=== PATIENT | male | born 1955 ===

== ENCOUNTER 2017-01-04 15:04 | Emergency (ER) | payer BC ==
--- NOTE | 2017-01-04 18:57 | RAD ---
HISTORY: Pleuritic pain with swallowing COMPARISONS: Chest x-ray dated December 10, 2008 VIEWS: 2, frontal and lateral views of the neck FINDINGS: The prevertebral soft tissues are normal. There is a continuous air column from the pharynx the trachea. Mild degenerative changes are noted of the cervical spine. There is calcification of the carotid bifurcations bilaterally. There is stable left apical pleural thickening IMPRESSION: CAROTID ATHEROSCLEROSIS. OTHERWISE UNREMARKABLE PLAIN FILM OF THE SOFT TISSUES OF THE NECK
--- NOTE | 2017-01-04 19:16 | UC ---
Throat Pain/Nasal Shane HPI - HPI Summary HPI Summary: WORSENING SORE THROAT THROUGHOUT THE DAY. HEADACHE COUGH, EXPOSURE TO STREP. - History of Current Complaint Chief Complaint: UCGeneralIllness Stated Complaint: SORE THROAT Time Seen by Provider: 01/04/17 17:50 Hx Obtained From: Patient Onset/Duration: Gradual Onset, Lasting Days, Still Present Severity: Moderate Cough: Nonproductive Associated Signs & Symptoms: Positive: Dysphagia, Hoarseness, Sinus Discomfort, Nasal Discharge - Epiglottits Risk Factors Epiglottis Risk Factors: Negative - Allergies/Home Medications Allergies/Adverse Reactions: Allergies Allergy/AdvReac Type Severity Reaction Status Date / Time No Known Allergies Allergy Verified 01/04/17 17:15 Home Medications: Home Medications Atorvastatin* [Lipitor 20 MG*] 20 mg PO DAILY 01/04/17 [History Confirmed ] Ibuprofen [Ibuprofen 200 MG] 200 mg PO Q6HR PRN 01/04/17 [History Confirmed ] Olmesartan Medoxomil [Benicar] 20 mg PO DAILY 01/04/17 [History Confirmed ] PMH/Surg Hx/FS Hx/Imm Hx Previously Healthy: Yes Cardiovascular History Of: Reports: Hypertension - Surgical History Surgical History: None - Family History Known Family History: Negative: Respiratory Disease - Social History Occupation: Employed Full-time Lives: With Family Alcohol Use: Rare Substance Use Type: None Smoking Status (MU): Never Smoked Tobacco - Immunization History Most Recent Influenza Vaccination: NOT UTD Review of Systems Constitutional: Negative, Fever Skin: Negative Eyes: Negative ENT: Sore Throat Respiratory: Negative Cardiovascular: Negative Gastrointestinal: Negative Genitourinary: Negative Motor: Negative Neurovascular: Negative Musculoskeletal: Negative Neurological: Negative Psychological: Negative All Other Systems Reviewed And Are Negative: Yes Physical Exam Triage Information Reviewed: Yes Appearance: Well-Appearing, No Pain Distress, Well-Nourished Vital Signs: Initial Vital Signs Temp 97.8 F 01/04/17 17:22 Pulse 64 01/04/17 17:22 Resp 16 01/04/17 17:22 BP 132/74 01/04/17 17:22 Pulse Ox 100 01/04/17 17:22 Vital Signs Reviewed: Yes Eye Exam: Normal ENT Exam: Normal ENT: Positive: Normal ENT inspection, Pharyngeal erythema, TMs normal, Tonsillar swelling, Tonsillar exudate Dental Exam: Normal Neck exam: Normal Neck: Positive: Supple, Nontender, No Lymphadenopathy Respiratory Exam: Normal Respiratory: Positive: Chest non-tender, Lungs clear, Normal breath sounds, No respiratory distress, No accessory muscle use Cardiovascular Exam: Normal Cardiovascular: Positive: RRR, No Murmur, Pulses Normal Abdominal Exam: Normal Abdomen Description: Positive: Nontender, No Organomegaly Musculoskeletal Exam: Normal Musculoskeletal: Positive: Strength Intact, ROM Intact Neurological Exam: Normal Psychological Exam: Normal Psychological: Positive: Normal Response To Family Skin Exam: Normal Throat Pain/Nasal Course/Dx - Differential Dx/Diagnosis Differential Diagnosis/HQI/PQRI: Otitis Media, Pharyngitis, Tonsillitis, URI Provider Diagnoses: TONSILLITIS Discharge - Discharge Plan Condition: Stable Disposition: HOME Prescriptions: Amoxicillin/Clavulanate TAB* [Augmentin TAB 875*] 875 mg PO BID #20 tab Patient Education Materials: Pharyngitis (ED), Carotid Artery Disease (GEN) Referrals: [facility] [place], [place] [facility] [Outside] No Primary Care Phys,NOPCP [Primary Care Provider] - Fern Dickey MD [Medical Doctor] -
== END 2017-01-04 19:10 | disposition home or self-care (01) ==
LOC: UCEAST 15:04
DX: J03.90 Acute tonsillitis, unspecified (principal); R13.10 Dysphagia, unspecified; I65.29 Occlusion and stenosis of unspecified carotid artery; I10 Essential (primary) hypertension
CPT/HCPCS: 70360; 87651; 99202; G0463